=== PATIENT | male | born 1960 | race Caucasian/White ===

== ENCOUNTER → 2016-07-21 | Outpatient (CLI) | payer BC | END | disposition home or self-care (01) | LOC: LABWHC1 09:33 | PROVIDERS: ATTEND Psychiatry & Neurology Neurology | DX: G40.409 Other generalized epilepsy and epileptic syndromes, not intractable, without status epilepticus (principal) | CPT/HCPCS: 36415; 80177 ==

== ENCOUNTER → 2016-08-04 | Outpatient (CLI) | payer BC ==
[2016-08-04 12:26] LABS: Blood Urea Nitrogen 7 mg/dL (9-20); Non-African American GFR(MDRD) >60 (>60 ml/min/1.73 sqM)
--- NOTE | 2016-08-04 13:52 | CT ---
EXAMINATION TYPE: CT Chest abd pelvis w con DATE OF EXAM: 08/04/2016 1:36 PM COMPARISON: NONE HISTORY: Lung CA CT DLP: 466.4 mGycm Automated exposure control for dose reduction was used. CONTRAST: CT scan of the chest, abdomen and pelvis is performed with Oral Contrast and with IV Contrast, patien t injected with 100 mL of Omnipaque 300. FINDINGS: The patient is right perihilar mass is increased in size from 3.9 x 3 cm to 4.8 x 3.7 cm. There is wo rsening post obstructive pneumonitis on the right. A small nodular opacity along the greater further on the right is increased in size from 3.3 mm to 10.3 mm. There is a new, 4.6 mm nodule in the superi or segment of the right upper lobe, best seen on image 29. There is a new, 2 mm subpleural nodule in the superior segment of the left upper lobe, best seen on image 26. One pretracheal lymph node mass h as increased in size from 10.2 mm to 25.1 mm. There is no pleural fluid. There is a stable 7.5 mm anterior pericardial effusion. Within the abdomen, the liver and spleen are normal. The gallbladder is partially contracted. The mass seen arising from the upper pole of the right kidney is increased in size from 4.2 cm to 6.0 cm. The left kidney appears unremarkable. Both adrenal glands are unremarkable. There is a new, 2.8 cm low density mass arising from the tail of the pancreas. There is no significant retroperitoneal, iliac or inguinal adenopathy. The bladder is unremarkable. There are scattered diverticula throughout the sigmoid and left side of the colon without radiographi c evidence of diverticulitis. The appendix is normal. Small bowel loops are normal. No free fluid and no free air is seen. No bony destructive lesion is seen. There is a superior endplate infraction of the T4 vertebral body. This was present previously but has progressed slightly. IMPRESSION: 1. Enlarging right suprahilar mass. There is worsening post obstructive pneumonitis. 2. Both ipsilateral and contralateral pulmonary metastases. 3. Enlarging mediastinal adenopathy. 4. Enlarging right renal mass. 5. New, 2.8 cm low attenuating mass within the tail of the pancreas. 6. Slight progression of the patient's superior endplate infraction of T4.
== END | disposition home or self-care (01) ==
LOC: RADCTMAIN 11:43
PROVIDERS: ATTEND Internal Medicine Hematology & Oncology
DX: C78.00 Secondary malignant neoplasm of unspecified lung (principal); C34.90 Malignant neoplasm of unspecified part of unspecified bronchus or lung; J18.9 Pneumonia, unspecified organism; N28.89 Other specified disorders of kidney and ureter; K86.89 Other specified diseases of pancreas; R59.0 Localized enlarged lymph nodes
CPT/HCPCS: 82565; 84520; 71260; 74177; 36415; Q9967

== ENCOUNTER → 2016-08-28 | Outpatient (CLI) | payer BC ==
--- NOTE | 2016-08-28 10:54 | MR ---
MRI of the brain with and without contrast HISTORY: Headaches. TECHNIQUE: T1-weighted sagittal, T2, FLAIR, and diffusion axial, postcontrast T1 axial and coronal vi ews of the brain are submitted. CONTRAST: 15 mL of MultiHance COMPARISON: 07/12/2016 FINDINGS: Enhancing lesions: 1. There is persistent right cerebellar lesion which measures 5 x 7 mm and previously measured 7 x 9 mm compatible with positive response to therapy. 2. There is a new right cerebellar hemisphere ring-enhancing lesion measuring 5 x 5 mm. 3. There is a new lesion within the left posterior cerebellar peduncle measuring 4 x 4 mm. 4. Ring-enhancing lesion in the posterior left temporal lobe with surrounding vasogenic edema measure s 8 x 8 mm and previously measured 9 x 9 mm. 5. There is interval noticeable increase in size of the right frontal lobe enhancing lesion now measu ring 6 x 5 mm and previously measuring 3 x 3 mm but was not mentioned within the report from the [facility]. 6. Stable 7 mm ring-enhancing right frontal gyral the lesion. 7. Within the high right posterior parietal lobe image 69 there is a 2 x 2 mm new ring-enhancing lesi on. 8. There is a 6 mm area of enhancement involving the right thalamus which is noticeably creased in s ize and previously measured 2 mm. 9. There is a new punctate enhancing lesion within the left thalamus image 41. Measures 1 to 2 mm. There is no evidence of acute ischemia. Craniocervical junction maintained. Sella turcica has a marques l appearance. Nonspecific white matter changes are noted likely representing a combination of remote microvascular ischemia post therapeutic changes. IMPRESSION: 1. There is interval development of multiple new small less than 1 cm areas of metastases as measured and described above. 2. Although there is improvement of one or 2 of the lesions with regard to size there also appears to be interval worsening and increase in size of a couple of the lesions as measured above.
== END | disposition home or self-care (01) ==
LOC: RADMRIMAIN 09:04
PROVIDERS: ATTEND Radiology Radiation Oncology
DX: C79.31 Secondary malignant neoplasm of brain (principal); C80.1 Malignant (primary) neoplasm, unspecified
CPT/HCPCS: 70553; A9577

== ENCOUNTER 2016-10-17 12:29 | Emergency (ER) | payer MEDICAID, BC ==
[2016-10-17 12:44] VITALS: RESP 16; TEMP 96.9
--- NOTE | 2016-10-17 14:43 | ED ---
Seizure HPI - General Chief Complaint: Seizure Stated Complaint: Seizure Time Seen by Provider: 10/17/16 12:54 Source: family, EMS Mode of arrival: EMS Limitations: altered mental status - History of Present Illness Initial Comments: This 56-year-old white male presents by EMS after having a seizure. This apparently lasted between 2 and 4 minutes. There was an apparent full body seizure. His last seizure and first seizure was in May 2016. He apparently does have cancer throughout his body with over 10 brain metastases per . He apparently is currently in hospice. His cancer is no longer being treated. The paramedics relate that seemed as though he had some right- sided paralysis while in route which has resolved at this time. The family does not want any diagnostic evaluations. They would like him admitted however as the patient apparently may need some additional home treatment set up prior to being discharged back home. The family relates that they do not have a way to move him. They do not have a chair. They do not have appropriate medications for treating additional seizures. Hospice is present and relates that they need some time to get these measures set up. He apparently is fairly new to hospice. No other complaints or modifying factors. - Related Data Home Medications Medication Instructions Recorded Confirmed Omeprazole [PriLOSEC] 40 mg PO DAILY 06/02/14 10/17/16 ALPRAZolam [Xanax] 0.5 mg PO HS PRN 05/28/16 10/17/16 Temazepam [Restoril] 15 mg PO HS 05/28/16 10/17/16 HYDROcodone/APAP 5-325MG [[place] 1 tab PO Q6HR PRN 10/17/16 10/17/16 5-325] Multivitamins, Thera [Multivitamin 1 tab PO DAILY@1200 10/17/16 10/17/16 (formulary)] Previous Rx's Medication Instructions Recorded Albuterol Inhaler [Ventolin Hfa 2 puff INHALATION RT-Q6H #0 05/31/16 Inhaler] Albuterol Nebulized [Ventolin 2.5 mg INHALATION RT-Q6H #0 05/31/16 Nebulized] Dexamethasone [Hexadrol] 4 mg PO TID #42 tab 05/31/16 Folic Acid 1 mg PO DAILY@1200 #30 tab 05/31/16 Ipratropium Nebulized [Atrovent 0.5 mg INHALATION RT-Q6H #0 05/31/16 Nebulized] Phenytoin Sodium Extended 100 mg PO TID #90 cap 05/31/16 [Dilantin] Thiamine [Vitamin B-1] 100 mg PO DAILY@1200 #30 tab 05/31/16 Allergies Allergy/AdvReac Type Severity Reaction Status Date / Time No Known Allergies Allergy Verified 10/17/16 14:10 Review of Systems ROS Statement: Those systems with pertinent positive or pertinent negative responses have been documented in the HPI. ROS Other: All systems not noted in ROS Statement are negative. Past Medical History Past Medical History: Cancer, Pneumonia Additional Past Medical History / Comment(s): PT PRESENTED BY CAR WITH FAMILY TO [facility] ER THIS AM AROUND [id number]. HE IS EXPERIENCING SHARP SEVERE AT TIMES EPIGASTRIC PAIN FOR PAST YEAR OR MORE BUT IT HAS BECAME WORSE IN THE LAST 2 WEEKS. lung cancer Apr-Radiation and chemo History of Any Multi-Drug Resistant Organisms: None Reported, Unobtainable Past Surgical History: Tonsillectomy Additional Past Surgical History / Comment(s): BILATERAL CATARACT REMOVAL 2013. throat surg nasel surg Past Anesthesia/Blood Transfusion Reactions: No Reported Reaction Past Psychological History: Anxiety Additional Psychological History / Comment(s): PT LIVES WITH AT HOME. HE IS NORMALLY INDEPENDENT. HE DRIVES A CAR. Smoking Status: Former smoker Past Alcohol Use History: Unable to Obtain, Occasional Past Drug Use History: None Reported Additional Drug Use History / Comment(s): reported by spouse and sister. - Past Family History Father Family Medical History: Cancer, COPD Additional Family Medical History / Comment(s): FATHER AT AGE 73 OF SOME FORM OF CANCER. Mother Family Medical History: COPD Additional Family Medical History / Comment(s): MOTHER IN HER 60'S General Exam - General Exam Comments Initial Comments: GENERAL: The patient is well nourished and well hydrated. VITAL SIGNS: Heart rate, blood pressure, respiratory rate reviewed as recorded in nurse's notes. EYES: Pupils are round and reactive. Extraocular movements are intact. No conjunctival / lid redness or swelling. ENT: No external evidence of injury, swelling, or ecchymosis. Airway is patent. Throat is clear. NECK: Nontender. No swelling or evidence of injury. No subcutaneous emphysema. Trachea is midline. No thyroid mass. HEART: Regular rate and rhythm. Good peripheral pulses. LUNGS/CHEST: Breath sounds clear and equal bilaterally. No rales, rhonchi, or wheezes. No ecchymosis, subcutaneous emphysema, or tenderness. ABDOMEN: Abdomen soft without tenderness. No palpable masses or organomegaly. No peritoneal signs. No abdominal wall swelling or ecchymosis. EXTREMITIES: No extremity tenderness. Normal muscle tone and function. No thoracolumbar tenderness. NEUROLOGIC: The patient will follow commands and move extremities. Strength appears to be intact bilaterally. He does not verbally communicate so it is somewhat difficult to assess sensation. SKIN: No abrasions or ecchymosis is noted. No induration or masses noted. PSYCHIATRIC: Alert and will follow some commands but is nonverbal. Limitations: altered mental status Course Vital Signs 10/17/16 12:33 Temperature 96.9 F L Pulse Rate 88 Respiratory 16 Rate Blood Pressure 165/96 O2 Sat by Pulse 96 Oximetry Medical Decision Making - Medical Decision Making The patient was seen and examined. The is quite clear that she does not want any further workup done and she does understand that his condition is terminal. She, however cannot take and is not willing to take the patient home as he currently is not set up for hospice with the patient with this significant of conditions. The hospice nurse is present and she is requesting admission to the hospital for hospice to set up an additional measures. The case is discussed with Dr. Mckee who is agreeable to admit for observation for these measures to be implemented. Disposition Clinical Impression: Generalized seizure, Malignant neoplasm metastatic to brain Disposition: ADMITTED IP TO THIS [facility] Condition: Poor Time of Disposition: 14:42 Decision Date: 10/17/16 Decision Time: 14:42
--- NOTE | 2016-10-17 14:45 | ED ---
Disposition Clinical Impression: Generalized seizure, Malignant neoplasm metastatic to brain Disposition: ADMITTED IP TO THIS HOSP Condition: Poor Instructions: Recurrent Seizures in Adults (ED) Referrals: James Escobedo III, MD [Primary Care Provider] - 1-2 days Time of Disposition: 14:45 Decision Date: 10/17/16 Decision Time: 14:45
[2016-10-17] MEDS ORDERED: MORPHINE SULFATE 4 MG/ML SYRINGE IVP STA (15:05)
[2016-10-17 15:09] VITALS: BP 153/85; PULSE 96
== END 2016-10-17 15:46 | disposition home or self-care (01) ==
LOC: EC 12:29
DX: G40.409 Other generalized epilepsy and epileptic syndromes, not intractable, without status epilepticus (principal); C80.1 Malignant (primary) neoplasm, unspecified; C79.31 Secondary malignant neoplasm of brain; Z79.899 Other long term (current) drug therapy; Z87.01 Personal history of pneumonia (recurrent); Z87.891 Personal history of nicotine dependence
CPT/HCPCS: 99285; 96374; J2270